=== PATIENT | female | born 1940 | race Caucasian/White ===

== ENCOUNTER 2023-01-13 13:06 | Emergency (ER) | payer MEDICARE ==
[2023-01-13] MEDS ORDERED: Ibuprofen 200 MG TAB ONE (13:38)
[2023-01-13] MEDS ORDERED: Cephalexin 250 MG CAP ONE (13:51)
== END 2023-01-13 13:55 | disposition home or self-care (01) ==
LOC: BURERS 13:06
DX: L03.116 Cellulitis of left lower limb (principal); I10 Essential (primary) hypertension; F17.210 Nicotine dependence, cigarettes, uncomplicated